=== PATIENT | male | born 1990 | race Caucasian/White ===

== ENCOUNTER 2016-09-10 13:31 | Emergency (ER) | payer BC, OTHER ==
[2016-09-10 13:36] VITALS: BP 109/48
[2016-09-10] MEDS ORDERED: Acetaminophen TAB* 325 MG PO ONE (14:26)
[2016-09-10] MEDS ORDERED: Lidocaine 2% PF * 5 ML VIAL INJ ONE (14:29)
[2016-09-10] MEDS ORDERED: Tetan/Diph/Pertus SYR(Tdap)* 0.5 ML SYR(BOOSTRIX) use SYR IM ONE (14:31)
--- NOTE | 2016-09-10 16:04 | UC ---
Laceration HPI - HPI Summary HPI Summary: LACERATION TO LEFT THIRD FINGER, CUT ON BATTERY OPERATED CIRCULAR SAW; TETANUS STATUS UNKNOWN; - History Of Current Complaint Chief Complaint: UCLaceration Stated Complaint: LEFT MIDDLE FINGER LAC Time Seen by Provider: 09/10/16 14:20 Hx Obtained From: Patient Laceration Location: Finger Mechanism Of Injury: Sharp Trauma Onset/Duration: Sudden Onset, Lasting Hours, Still Present Severity: Moderate Pain Intensity: 3 Pain Scale Used: Adult Non Verbal Related History: Dominant Hand Right - Allergies/Home Medications Allergies/Adverse Reactions: Allergies Allergy/AdvReac Type Severity Reaction Status Date / Time No Known Allergies Allergy Verified 09/10/16 13:35 PMH/Surg Hx/FS Hx/Imm Hx Previously Healthy: Yes - Surgical History Surgical History: None - Family History Known Family History: Positive: Diabetes - maternal grandmother, Other - maternal grandfather- ulcer Negative: Cardiac Disease, Hypertension - Social History Occupation: Employed Full-time Lives: With Family Alcohol Use: Occasionally Substance Use Type: Marijuana Substance Use Comment - Amount & Last Used: occasional use- used today Smoking Status (MU): Never Smoked Tobacco - Immunization History Most Recent Tetanus Shot: given 09/10/16 Review of Systems Constitutional: Negative Skin: Other - LACERATION LEFT 3RD FINGER Eyes: Negative ENT: Negative Respiratory: Negative Cardiovascular: Negative Gastrointestinal: Negative Genitourinary: Negative Motor: Negative Neurovascular: Negative Musculoskeletal: Negative Neurological: Negative Psychological: Negative All Other Systems Reviewed And Are Negative: Yes Physical Exam Triage Information Reviewed: Yes Appearance: Well-Appearing, Well-Nourished, Pain Distress - MILD Vital Signs: Initial Vital Signs Temp 97.0 F 09/10/16 13:33 Pulse 85 09/10/16 13:33 Resp 16 09/10/16 13:33 BP 109/48 09/10/16 13:33 Pulse Ox 97 09/10/16 13:33 Vital Signs Reviewed: Yes Eye Exam: Normal ENT Exam: Normal Dental Exam: Normal Neck exam: Normal Neck: Positive: Supple, Nontender, No Lymphadenopathy Respiratory Exam: Normal Respiratory: Positive: Chest non-tender, Lungs clear, Normal breath sounds, No respiratory distress, No accessory muscle use Cardiovascular Exam: Normal Cardiovascular: Positive: RRR, No Murmur Abdominal Exam: Normal Musculoskeletal Exam: Normal Musculoskeletal: Positive: Strength Intact, ROM Intact Neurological Exam: Normal Psychological Exam: Normal Skin: Positive: Other - LACERATION LEFT THIRD FINGER Laceration Repair - Laceration Repair 1 Description: Linear Laceration Size After Repair: Length (cm) - 2, Width (mm) - 4, Depth (mm) - 6 Type Injection: Digital Anesthesia Used: 2.0% Lido Closure Material: Sutures Suture Of: Skin Suture Type: Prolene Laceration Course/Dx - Differential Dx - Laceration/Wound Differental Diagnoses: Cellulitis, Foreign Body, Fracture, Joint Infection, Laceration, Tendon Laceration Provider Diagnoses: LACERATION DISTAL LEFT THIRD FINGER Discharge - Discharge Plan Condition: Stable Disposition: HOME Prescriptions: HYDROcodone/ACETAMIN 5-325 MG* [Mancos 5-325 TAB*] 1 tab PO Q8H PRN #6 tab MDD three tabs PRN Reason: Pain Patient Education Materials: Finger Laceration (ED) Referrals: [facility] [Outside] Non Staff,Doctor [Primary Care Provider] - Linda Garland MD [Medical Doctor] - Additional Instructions: PLEASE HAVE SUTURES REMOVED IN TEN DAYS Images Hands: 1 - 2CM LACERATION 2 - 2CM LACERATION CONTINUED
== END 2016-09-10 15:23 | disposition home or self-care (01) ==
LOC: UCEAST 13:31
DX: S61.213A Laceration without foreign body of left middle finger without damage to nail, initial encounter (principal); Z23 Encounter for immunization; W31.2XXA Contact with powered woodworking and forming machines, initial encounter; Y93.9 Activity, unspecified; Y92.9 Unspecified place or not applicable; Y99.9 Unspecified external cause status; F12.90 Cannabis use, unspecified, uncomplicated
CPT/HCPCS: 12001; 12002; 90471; 90715; 99212; A9270-GY; G0463

== ENCOUNTER 2016-09-11 21:00 | Emergency (ER) | payer OTHER ==
[2016-09-11] MEDS ORDERED: Cephalexin CAP* 500 MG PO ONE (22:08)
--- NOTE | 2016-09-11 22:10 | UC ---
HPI Wound/Suture Re-check - HPI Summary HPI Summary: HAD LMF SUTURED YESTERDAY C/P PAIN (OUT OF MEDS) CONCERNED THAT "A MUSCLE IF COMING OUT" NO FEVER - History Of Current Complaint Chief Complaint: UCSkin Time Seen by Provider: 09/11/16 21:42 Hx Obtained From: Patient Onset/Duration: Sudden Onset, Lasting Hours Severity: Severe Pain Intensity: 8 Pain Scale Used: 0-10 Numeric - Allergies/Home Medications Allergies/Adverse Reactions: Allergies Allergy/AdvReac Type Severity Reaction Status Date / Time No Known Allergies Allergy Verified 09/11/16 21:13 PMH/Surg Hx/FS Hx/Imm Hx Previously Healthy: Yes - Surgical History Surgical History: None - Family History Known Family History: Positive: Diabetes - maternal grandmother, Other - maternal grandfather- ulcer Negative: Cardiac Disease, Hypertension - Social History Alcohol Use: Occasionally Substance Use Type: Marijuana Substance Use Comment - Amount & Last Used: occasional use- used today Smoking Status (MU): Never Smoked Tobacco - Immunization History Most Recent Tetanus Shot: given 09/10/16 Review of Systems Constitutional: Negative Skin: Negative Eyes: Negative ENT: Negative Respiratory: Negative Cardiovascular: Negative Gastrointestinal: Negative Genitourinary: Negative Motor: Negative Neurovascular: Negative Musculoskeletal: Negative Neurological: Negative Psychological: Negative All Other Systems Reviewed And Are Negative: Yes Physical Exam Triage Information Reviewed: Yes Appearance: Well-Appearing, No Pain Distress, Well-Nourished Vital Signs: Initial Vital Signs Temp 97.8 F 09/11/16 21:06 Pulse 62 09/11/16 21:06 Resp 18 09/11/16 21:06 BP 103/64 09/11/16 21:06 Pulse Ox 98 09/11/16 21:06 Eye Exam: Normal ENT: Positive: Hearing grossly normal. Negative: Nasal congestion, Nasal drainage, Trismus, Muffled/hoarse voice Neck: Positive: Supple, Nontender Respiratory: Positive: Lungs clear, Normal breath sounds, No respiratory distress Cardiovascular: Positive: RRR, No Murmur Musculoskeletal: Positive: ROM Intact, No Edema Neurological: Positive: Alert Psychological Exam: Normal Skin Exam: Other - SEE IMAGE Diagnostics - Radiology No standard instances Xray Interpretation: Positive (See Comments) - SOFT TISSUE SWELLING Radiology Interpretation Completed By: Radiologist Course/Dx - Differential Dx - Laceration/Wound Provider Diagnoses: LACERATION RECHECK LEFT MIDDLE FINGER Discharge - Discharge Plan Condition: Stable Disposition: HOME Prescriptions: Cephalexin CAP* [Keflex CAP*] 500 mg PO QID #28 cap Naproxen Sodium [Naproxen Sodium 500 MG TAB] 500 mg PO BID PRN #20 tab PRN Reason: Pain Oxycodone W/ Acetaminophen [Percocet 7.5-325 mg (NF)] 1 tab PO Q6H PRN #8 tab MDD 4 PRN Reason: Pain - Severe Patient Education Materials: Care For Your Stitches (ED) Referrals: Non Staff,Doctor [Primary Care Provider] - Linda Garland MD [Medical Doctor] - Additional Instructions: gently clean twice daily with soap and water antibiotic ointment dressing elevate elevate elevate take naproxen with food twice daily recheck in 48 hours Images Hands: 1 - SWOLLEN/NO PUS/VERY MILD ERTHYEMA
[2016-09-11] MEDS ORDERED: HYDROcodone/ACETAMIN 5-325 MG* 1 TAB PO ONE ×2 (22:37)
--- NOTE | 2016-09-11 22:42 | RAD ---
INDICATION: Left middle finger injury. TECHNIQUE: 3 views of the left middle finger were obtained. FINDINGS: There is soft tissue swelling and a soft tissue defect at the level of the distal phalanx. No fracture is seen. Joint spaces appear maintained. IMPRESSION: SOFT TISSUE INJURY, NO FRACTURE IS SEEN.
[2016-09-11] MEDS ORDERED: Naproxen TAB* 250 MG PO ONE (22:59)
[2016-09-11 23:36] VITALS: BP 114/67
== END 2016-09-11 23:30 | disposition home or self-care (01) ==
LOC: UCEAST 21:00
DX: M79.89 Other specified soft tissue disorders (principal); F12.90 Cannabis use, unspecified, uncomplicated
CPT/HCPCS: 73140; 99213; A9270-GY; G0463

== ENCOUNTER 2016-11-29 18:01 | Emergency (ER) | payer OTHER ==
[2016-11-29 21:33] LABS: Hematocrit 40 % (42-52); Hemoglobin 13.6 g/dl (14.0-18.0); Mean Corpuscular HGB Conc 34 g/dl (31-36); Mean Corpuscular Hemoglobin 31 pg (27-31); Mean Corpuscular Volume 91 fL (80-94); Mean Platelet Volume 8 um3 (7.4-10.4); Red Blood Count 4.38 10^6/ul (4.0-5.4); Red Cell Distribution Width 13 % (10.5-15); White Blood Count 17.5 10^3/ul (3.5-10.8)
[2016-11-29 21:37] LABS: Add Diff/Slide Review? Slide Review Added; Comments Flag Yes
[2016-11-29 21:47] LABS: Albumin 4.5 g/dL (3.2-5.2); BUN/Creatinine Ratio 11.4 (8-20); C Reactive Protein 23.82 mg/L (< 5.00); Calcium 9.4 mg/dL (8.6-10.3); EGFR African American 132.6 (>60); EGFR Non-African American 103.1 (>60); Globulin 2.7 g/dL (2-4); Potassium 3.9 mmol/L (3.5-5.0); Total Bilirubin 0.4 mg/dL (0.2-1.0); Total Protein 7.2 g/dL (6.4-8.9)
[2016-11-29] MEDS ORDERED: HYDROmorphone INJ* 1 MG/ML CARPUJECT SYRINGE IV SLOW PU ONE (22:08)
[2016-11-29] MEDS ORDERED: NS 0.9% 1000 ML* 1,000 ML IV ONE ×2 (22:08→22:34)
[2016-11-29] MEDS ORDERED: HYDROmorphone INJ* 2 MG/ML CARPUJECT SYRINGE ONE (22:12)
[2016-11-29] MEDS ORDERED: HYDROmorphone INJ* 2 MG/ML CARPUJECT SYRINGE IV SLOW PU ONE (22:19)
[2016-11-29 22:37] LABS: Urine Bacteria Absent (Absent); Urine Bilirubin Negative (Negative); Urine Glucose Negative (Negative); Urine Nitrite Negative (Negative)
[2016-11-29] MEDS ORDERED: Morphine INJ* 4 MG/ML 1 ML CARPUJECT IV ONE (23:02)
[2016-11-29] MEDS ORDERED: metroNIDAZOLE IV 500 MG/100ML* 500 MG/100 ML BAG IVPB ONE (23:29)
[2016-11-29] MEDS ORDERED: NS 0.9% 50 ML* 50 ML ONE (23:50)
[2016-11-30] MEDS ORDERED: Cefepime(*) 1 GM in NS 0.9% 50 ML* 50 ML IVPB ONE ×2
[2016-11-30] MEDS ORDERED: Morphine INJ* 4 MG/ML 1 ML CARPUJECT IM ONE (00:06)
[2016-11-30] MEDS ORDERED: metroNIDAZOLE TAB* 250 MG PO ONE (00:11)
[2016-11-30] MEDS ORDERED: Ondansetron INJ* 2 MG/ML VIAL ONE (00:24)
[2016-11-30] MEDS ORDERED: Ondansetron INJ* 2 MG/ML VIAL IV ONE (00:26)
[2016-11-30] MEDS ORDERED: Iohexol 300* (CONTRAST) 10 ML SDV IV ONE (00:52)
[2016-11-30] MEDS ORDERED: Ketorolac INJ* 30 MG/ML 1 ML VIAL IV PUSH ONE (02:36)
[2016-11-30] MEDS ORDERED: Ketorolac INJ* 60 MG/2 ML VIAL IM ONE (02:54)
[2016-11-30 03:58] VITALS: BP 104/50
--- NOTE | 2016-11-30 08:11 | RAD ---
INDICATION: 26-year-old with rectal pain COMPARISON: None TECHNIQUE: Axial source images were obtained from the hemidiaphragms to the symphysis pubis following administration of oral and intravenous contrast. 149 mL Omnipaque 300 was utilized. Coronal and sagittal reconstructed images were acquired. Lung bases: The lung bases are clear. Liver: The liver is normal in size. There is a 5 mm hepatic hypodensity in the posterior right hepatic lobe near the dome likely representing a incidental cyst or hemangioma. There is no ductal dilatation. Gallbladder: There are no calcified gallstones. There is no evidence of wall thickening or pericholecystic fluid. Spleen: The spleen is normal in size. There are no masses. Pancreas: There is no focal pancreatic mass or ductal dilatation. Adrenal glands: There is no evidence of adrenal mass. Kidneys: The kidneys are normal in size and position. There are prompt nephrograms and there is prompt excretion bilaterally. There are no renal parenchymal masses. There is no evidence of nephrolithiasis. Adenopathy: There is no evidence of adenopathy by size criteria. Fluid collections: There are no free or localized fluid collections. Vessels:There are no significant atherosclerotic changes involving the aorta. There is no focal aneurysm. The iliac vessels are normal in caliber. The IVC appears normal. GI tract: There is a 2.1 x 1.5 cm hypodensity at the level of the lateral wall of the rectum to left of midline consistent with a perirectal abscess. The upper and lower GI tract are otherwise normal. The appendix is normal. There is no obstruction. Pelvic organs: The prostate and seminal vesicles appear normal Bladder: There are no bladder masses. Abdominal and pelvic soft tissues: The extraperitoneal abdominal and pelvic soft tissues appear normal.. Osseous structures: There are no acute osseous findings. Other: None IMPRESSION: SMALL PERIRECTAL ABSCESS, OTHERWISE NEGATIVE.
--- NOTE | 2016-12-01 11:45 | ED ---
Luis Vasquez Benjamin, scribed for Richard Betancourt MD on 11/29/16 at 2207 . GI/ HPI - HPI Summary HPI Summary: 26yo male c/o rectal pain since yesterday morning. Pt states that pain is constant at all times, but worse during BM. Pt denies any N/V/D, abdominal pain , no blood in stool. No significant PMHx or recent hx of infection. Pt denies fever but states that he has been warm and feeling sick ever since his pain started. - History of Current Complaint Chief Complaint: EDRectalPain Time Seen by Provider: 11/29/16 20:55 Stated Complaint: RECTAL PAIN Hx Obtained From: Patient, Family/[employer] - SO Onset/Duration: Started Days Ago - 1 day ago, Still Present Timing: Constant Severity: Severe Current Severity: Moderate Pain Intensity: 5 Location of Pain: Rectal Associated Signs and Symptoms: Positive: Rectal Pain. Negative: Nausea, Vomiting, Blood-Streaked Stool, Black Tarry Stool, Bright Red Blood w/Stool, Diarrhea, Abdominal Pain - Allergy/Home Medications Allergies/Adverse Reactions: Allergies Allergy/AdvReac Type Severity Reaction Status Date / Time No Known Allergies Allergy Verified 09/11/16 21:13 PMH/Surg Hx/FS Hx/Imm Hx Endocrine/Hematology History: Denies: Hx Diabetes Cardiovascular History: Denies: Hx Hypertension Respiratory History: Denies: Hx Chronic Obstructive Pulmonary Disease (COPD) Infectious Disease History: Yes Infectious Disease History: Denies: Hx Hepatitis, Traveled Outside the [place] in Last 30 Days - Family History Known Family History: Positive: Diabetes - maternal grandmother, Other - maternal grandfather- ulcer Negative: Cardiac Disease, Hypertension - Social History Lives: With Family Alcohol Use: Occasionally Substance Use Type: Reports: Marijuana Substance Use Comment - Amount & Last Used: occasional use- used today Smoking Status (MU): Never Smoked Tobacco Review of Systems Constitutional: Negative Negative: Fever Eyes: Negative ENT: Negative Cardiovascular: Negative Respiratory: Negative Positive: Other - rectal pain. Negative: Abdominal Pain, Vomiting, Diarrhea, Nausea Genitourinary: Negative Musculoskeletal: Negative Skin: Negative Neurological: Negative Psychological: Normal All Other Systems Reviewed And Are Negative: Yes Physical Exam - Summary Physical Exam Summary: Appearance: Well-Appearing, no pain distress, well nourished Skin: warm, skin color reflects adequate perfusion, dry, no acute skin lesions Head Exam: Normal Eye Exam: EOMI, PERRL, conjunctiva clear ENT: pharynx nml, TM nml Neck exam: Supple, nontender Respiratory Exam: CTA, breath sounds present, no rales, no rhonchi, no wheezes Cardiovascular Exam: RRR, S1, S2, No Murmur, No rub, No gallops, pulses symmetrical Abdomen Description: Soft, no guarding, no rebound, nondistended, no organomegaly. Mild lower abdomen tenderness. Severe rectal tenderness to palpation. Cannot complete a digital rectal d/t discomfort. No hemorrhoids seen , no obvious abscess or cellulitis, no fissures noted. Bowel Sounds: Present Musculoskeletal: Normal, Strength/ROM Intact Neurological Exam: nml, sens/motor intact, A&Ox3, no cerebellar dysfunction Psychological Exam: affect/mood appropriate Triage Information Reviewed: Yes Vital Signs On Initial Exam: Initial Vitals Temp Pulse Resp BP Pulse Ox 98.3 F 118 19 126/65 97 11/29/16 18:04 11/29/16 18:04 11/29/16 18:04 11/29/16 18:04 11/29/16 18:04 Vital Signs Reviewed: Yes - [place] Coma Scale Coma Scale Total: 15 Diagnostics - Vital Signs Vital Signs Temp Pulse Resp BP Pulse Ox 11/29/16 20:29 98.7 F 105 18 132/70 100 11/29/16 18:04 98.3 F 118 19 126/65 97 - Laboratory Lab Results: Lab Results 11/29/16 11/29/16 11/29/16 Range/Units 21:20 21:20 21:20 WBC 17.5 H (3.5-10.8) 10^3/ul RBC 4.38 (4.0-5.4) 10^6/ul Hgb 13.6 L (14.0-18.0) g/dl Hct 40 L (42-52) % MCV 91 (80-94) fL MCH 31 (27-31) pg MCHC 34 (31-36) g/dl RDW 13 (10.5-15) % Plt Count 176 (150-450) 10^3/ul MPV 8 (7.4-10.4) um3 Neut % (Auto) 77.4 (38-83) % Lymph % (Auto) 11.7 L (25-47) % Hawkins % (Auto) 10.1 H (1-9) % Eos % (Auto) 0.4 (0-6) % Baso % (Auto) 0.4 (0-2) % Absolute Neuts (auto) 13.6 H (1.5-7.7) 10^3/ul Absolute Lymphs (auto) 2.0 (1.0-4.8) 10^3/ul Absolute Monos (auto) 1.8 H (0-0.8) 10^3/ul Absolute Eos (auto) 0.1 (0-0.6) 10^3/ul Absolute Basos (auto) 0.1 (0-0.2) 10^3/ul Absolute Nucleated RBC 0 10^3/ul Nucleated RBC % 0 INR (Anticoag Therapy) (0.89-1.11) Sodium 135 (133-145) mmol/L Potassium 3.9 (3.5-5.0) mmol/L Chloride 101 (101-111) mmol/L Carbon Dioxide 27 (22-32) mmol/L Anion Gap 7 (2-11) mmol/L BUN 10 (6-24) mg/dL Creatinine 0.88 (0.67-1.17) mg/dL Est GFR ( Amer) 132.6 (>60) Est GFR (Non-Af Amer) 103.1 (>60) BUN/Creatinine Ratio 11.4 (8-20) Glucose 92 (70-100) mg/dL Lactic Acid 1.7 (0.5-2.0) mmol/L Calcium 9.4 (8.6-10.3) mg/dL Magnesium 2.0 (1.9-2.7) mg/dL Total Bilirubin 0.40 (0.2-1.0) mg/dL AST 15 (13-39) U/L ALT 13 (7-52) U/L Alkaline Phosphatase 52 (34-104) U/L Total Creatine Kinase 103 (10-223) U/L C-Reactive Protein 23.82 H (< 5.00) mg/L Total Protein 7.2 (6.4-8.9) g/dL Albumin 4.5 (3.2-5.2) g/dL Globulin 2.7 (2-4) g/dL Albumin/Globulin Ratio 1.7 (1-3) Amylase 30 (29-103) U/L Lipase 12 (11.0-82.0) U/L 11/29/16 Range/Units 21:20 WBC (3.5-10.8) 10^3/ul RBC (4.0-5.4) 10^6/ul Hgb (14.0-18.0) g/dl Hct (42-52) % MCV (80-94) fL MCH (27-31) pg MCHC (31-36) g/dl RDW (10.5-15) % Plt Count (150-450) 10^3/ul MPV (7.4-10.4) um3 Neut % (Auto) (38-83) % Lymph % (Auto) (25-47) % Hawkins % (Auto) (1-9) % Eos % (Auto) (0-6) % Baso % (Auto) (0-2) % Absolute Neuts (auto) (1.5-7.7) 10^3/ul Absolute Lymphs (auto) (1.0-4.8) 10^3/ul Absolute Monos (auto) (0-0.8) 10^3/ul Absolute Eos (auto) (0-0.6) 10^3/ul Absolute Basos (auto) (0-0.2) 10^3/ul Absolute Nucleated RBC 10^3/ul Nucleated RBC % INR (Anticoag Therapy) 0.91 (0.89-1.11) Sodium (133-145) mmol/L Potassium (3.5-5.0) mmol/L Chloride (101-111) mmol/L Carbon Dioxide (22-32) mmol/L Anion Gap (2-11) mmol/L BUN (6-24) mg/dL Creatinine (0.67-1.17) mg/dL Est GFR ( Amer) (>60) Est GFR (Non-Af Amer) (>60) BUN/Creatinine Ratio (8-20) Glucose (70-100) mg/dL Lactic Acid (0.5-2.0) mmol/L Calcium (8.6-10.3) mg/dL Magnesium (1.9-2.7) mg/dL Total Bilirubin (0.2-1.0) mg/dL AST (13-39) U/L ALT (7-52) U/L Alkaline Phosphatase (34-104) U/L Total Creatine Kinase (10-223) U/L C-Reactive Protein (< 5.00) mg/L Total Protein (6.4-8.9) g/dL Albumin (3.2-5.2) g/dL Globulin (2-4) g/dL Albumin/Globulin Ratio (1-3) Amylase (29-103) U/L Lipase (11.0-82.0) U/L Result Diagrams: 11/29/16 21:20 11/29/16 21:20 Lab Statement: Any lab studies that have been ordered have been reviewed, and results considered in the medical decision making process. - CT A/P CTW CT Interpretation: Positive (See Comments) - 2.3cm left perianal abscess. CT Interpretation Completed By: Radiologist - ED physician has reviewed this radiology report and agrees. Re-Evaluation - Re-Evaluation First Eval Re-Evaluation Time: 22:46 Change: Unchanged Comment: Pt is still in pain even after receiving pain meds. Pt states that his pain meds helped initially, but nt anymore. Pt is back in pain. Will order more pain medications for pain control. Second Eval Re-Evaluation Time: 02:51 Comment: Reviewed labs and imaging results with the pt. Discussed follow up plans with the pt. GIGU Course/Dx - Course Course Of Treatment: Reviewed pts medication and allergy lists. Blood pressure noted. Consulted Dr. Amaya (surgeon) at 0231. Recommends abx and he will see the pt tomorrow. - Diagnoses Provider Diagnoses: Perianal abscess Discharge - Discharge Plan Condition: Stable Disposition: HOME Prescriptions: Ciprofloxacin TAB* [Cipro 500 MG TAB*] 500 mg PO BID #20 tab Metronidazole [Flagyl 500 MG TAB] 500 mg PO TID #30 tab oxyCODONE/Acetam5/325MG PREPAK [Percocet 5/325 TAB*] 0 tab .SEE ORDER Q6HR #12 tab MDD 4 Patient Education Materials: Rectal Abscess (ED) Forms: *Work Release Referrals: Abhi Amaya MD [Medical Doctor] - (follow up with DR. Amaya on 11/30/16 sometime between 9am to 12pm.) The documentation as recorded by the scribeLuis Benjamin accurately reflects the service I personally performed and the decisions made by , Richard Betancourt MD.
== END 2016-11-30 03:06 | disposition home or self-care (01) ==
LOC: ED 18:01
DX: K61.0 Anal abscess (principal); K62.89 Other specified diseases of anus and rectum; K51.20 Ulcerative (chronic) proctitis without complications
CPT/HCPCS: 36415; 74177; 80053; 81003; 81015; 82150; 82550; 83605; 83690; 83735; 85025; 85610; 86140; 99284; A9270-GY; J0692; J1170; J1885; J2270; J2405; Q9967